=== PATIENT | female | born 1940 | race Caucasian/White ===

== ENCOUNTER → 2018-04-22 | Outpatient (CLI) | payer MEDICARE | LOC: M.ULTRA 04-15 13:30 → M.RAD 13:34 | DX: Z12.31 Encounter for screening mammogram for malignant neoplasm of breast (principal); M79.662 Pain in left lower leg; M79.89 Other specified soft tissue disorders; E03.9 Hypothyroidism, unspecified; I10 Essential (primary) hypertension; I25.10 Atherosclerotic heart disease of native coronary artery without angina pectoris; E78.00 Pure hypercholesterolemia, unspecified; E78.5 Hyperlipidemia, unspecified; M81.0 Age-related osteoporosis without current pathological fracture ==

== ENCOUNTER → 2018-05-23 | Outpatient (CLI) | payer MEDICARE | LOC: M.ULTRA 12:52 | DX: Z00.01 Encounter for general adult medical examination with abnormal findings (principal); M79.604 Pain in right leg; M79.605 Pain in left leg; I73.9 Peripheral vascular disease, unspecified; I77.1 Stricture of artery ==

== ENCOUNTER → 2021-03-20 | Outpatient (CLI) | payer MEDICARE | LOC: M.MRI 11:30 | PROVIDERS: ATTEND Family Medicine | DX: M81.0 Age-related osteoporosis without current pathological fracture (principal); E78.00 Pure hypercholesterolemia, unspecified; G44.209 Tension-type headache, unspecified, not intractable; R35.0 Frequency of micturition; N39.45 Continuous leakage; R60.9 Edema, unspecified; I10 Essential (primary) hypertension; E03.9 Hypothyroidism, unspecified ==